=== PATIENT | female | born 1995 | race Caucasian/White ===

== ENCOUNTER 2019-02-01 14:41 | Emergency (ER) | payer OTHER ==
--- NOTE | 2019-02-01 14:46 | ED Physician Documentation ---
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 That cleared in a minute. Then went to her car and was starting to drive home and felt lightheaded again, almost feeling that she would pass out. She turned back to hospital and came to ER for eval. Feeling improved coming into ER exam room.) Preceding symptoms: Palpitations (felt that her heart was going fast after feeling lightheaded), Light headed. No: Headache, Chest pain, Abdominal pain Associated symptoms: No: Headache, Chest pain, Nausea / vomiting Contributing factors: Decreased PO intake (she says she had not had anything to eat nor drink during work, which was from 6 am until 2 pm here at the hospital. Was going to eat when she got home.). No: Recent med change, Noxious stimulae, Emotional upset, Exertion Injury occurred: No: Fell, Head injury, Neck injury Similar symptoms before: Has not had sx before Recently seen: Not recently seen Review of Systems Constitutional: denies: Fever, Chills Nose: denies: Rhinorrhea / runny nose, Congestion Throat: denies: Sore throat Cardiac: reports: Palpitations (felt heart was going fast after she was feeling lightheaded.). denies: Chest pain / pressure Respiratory: denies: Cough GI: denies: Abdominal Pain, Nausea, Vomiting, Diarrhea : reports: LMP (1 week ago). denies: Dysuria, Discharge, Vaginal bleeding, Missed period Musculoskeletal: denies: Neck pain, Back pain Neurologic: reports: Near syncope. denies: Focal weakness, Numbness, Syncope, Altered mental status, Headache Endocrine: reports: Weight gain (mild over the past 4-5 months). denies: Weight loss PD PAST MEDICAL HISTORY - Past Medical History Cardiovascular: None Respiratory: None Neuro: None Endocrine/Autoimmune: None - Present Medications Home Medications: Ambulatory Orders Medication Instructions Recorded Confirmed No Known Home Medications 02/01/19 02/01/19 - Allergies Allergies/Adverse Reactions: Allergies Allergy/AdvReac Type Severity Reaction Status Date / Time latex Allergy Hives Verified 02/01/19 16:32 Sulfa (Sulfonamide Allergy Nausea Verified 02/01/19 16:32 Antibiotics) PD ED PE NORMAL - Vitals Vital signs reviewed: Yes - General General: Alert and oriented X 3, Well developed/nourished - HEENT HEENT: Atraumatic, Pharynx benign - Neck Neck: Supple, no meningeal sign, No adenopathy, Thyroid normal - Cardiac Cardiac: RRR, No murmur - Respiratory Respiratory: Clear bilaterally - Abdomen Abdomen: Soft, Non tender - Rectal Rectal: Deferred - Derm Derm: Normal color, Warm and dry - Extremities Extremities: No tenderness to palpate, Normal ROM s pain, No edema, No calf tenderness / cord - Neuro Neuro: Alert and oriented X 3, No motor deficit, Normal speech Results - Vitals Vitals: Vital Signs - 24 hr 02/01/19 02/01/19 14:48 16:54 Temperature 36.6 C 37.0 C Heart Rate 90 90 Respiratory 16 21 Rate Blood Pressure 147/96 H 128/89 H O2 Saturation 100 97 Oxygen O2 Source Room air - EKG (time done) 14:59 Rate: Rate (enter#) (100) Rhythm: NSR [place]: Normal Intervals: Normal [place] QRS: Normal Ischemia: Normal ST segments. No: ST elevation c/w ischemia, ST depression - Labs Labs: Laboratory Tests 02/01/19 02/01/19 02/01/19 15:27 15:35 15:35 WBC 7.3 RBC 4.84 Hgb 13.8 Hct 42.9 MCV 88.6 MCH 28.5 MCHC 32.2 RDW 11.5 L Plt Count 261 MPV 9.7 Neut # (Auto) 4.1 Lymph # (Auto) 2.4 [place] # (Auto) 0.5 Eos # (Auto) 0.3 Baso # (Auto) 0.0 Absolute Nucleated RBC 0.00 Nucleated RBC % 0.0 Sodium 139 Potassium 3.5 Chloride 102 Carbon Dioxide 23 Anion Gap 14.0 H BUN 18 Creatinine 0.7 Estimated GFR (MDRD) 105 Glucose 104 H Calcium 9.5 Magnesium 2.2 Total Bilirubin 0.6 AST 38 ALT 62 H Alkaline Phosphatase 48 Total Protein 7.9 Albumin 4.7 Globulin 3.2 Albumin/Globulin Ratio 1.5 Lipase 28 TSH Urine Color YELLOW Urine Clarity CLEAR Urine pH 6.5 Ur Specific [place] 1.010 Urine Protein NEGATIVE Urine Glucose (UA) NEGATIVE Urine Ketones NEGATIVE Urine Occult Blood NEGATIVE Urine Nitrite NEGATIVE Urine Bilirubin NEGATIVE Urine Urobilinogen 0.2 (NORMAL) Ur Leukocyte Esterase NEGATIVE Ur Microscopic Review NOT INDICATED Urine Culture Comments NOT INDICATED Urine HCG, Qual NEGATIVE 02/01/19 15:35 WBC RBC Hgb Hct MCV MCH MCHC RDW Plt Count MPV Neut # (Auto) Lymph # (Auto) [place] # (Auto) Eos # (Auto) Baso # (Auto) Absolute Nucleated RBC Nucleated RBC % Sodium Potassium Chloride Carbon Dioxide Anion Gap BUN Creatinine Estimated GFR (MDRD) Glucose Calcium Magnesium Total Bilirubin AST ALT Alkaline Phosphatase Total Protein Albumin Globulin Albumin/Globulin Ratio Lipase TSH 1.35 Urine Color Urine Clarity Urine pH Ur Specific [place] Urine Protein Urine Glucose (UA) Urine Ketones Urine Occult Blood Urine Nitrite Urine Bilirubin Urine Urobilinogen Ur Leukocyte Esterase Ur Microscopic Review Urine Culture Comments Urine HCG, Qual PD MEDICAL DECISION MAKING - ED course Complexity details: reviewed results, considered differential, d/w patient Departure - Departure Disposition: 01 Home, Self Care Clinical Impression: Near syncope Condition: Stable Record reviewed to determine appropriate education?: Yes Instructions: ED Near Syncope Unkn Comments: Stay well-hydrated. Regular meals. Recheck if recurrent or persistent problems. At this point there are no signs of significant causes for the episodes and I presume it was just under hydrated led to a transient low blood pressure. Discharge Date/Time: 02/01/19 16:56
[2019-02-01 15:35] LABS: BILIRUBIN,URINE NEGATIVE (NEGATIVE); GLUCOSE, URINE (UA) NEGATIVE (NEGATIVE); KETONES,URINE (UA) NEGATIVE (NEGATIVE); LEUKOCYTE ESTERASE, URINE NEGATIVE (NEGATIVE); NITRITE,URINE NEGATIVE (NEGATIVE); OCCULT BLOOD,URINE NEGATIVE (NEGATIVE); PH,URINE 6.5 PH (5.0-7.5); PROTEIN,URINE NEGATIVE (NEGATIVE); UROBILINOGEN,URINE 0.2 (NORMAL) E.U./dL (NORMAL)
[2019-02-01 15:41] LABS: CLARITY,URINE CLEAR (CLEAR); HCG UR QUAL NEGATIVE
[2019-02-01 15:42] LABS: BASOPHILS % (AUTO) 0.4 %; EOSINOPHILS # (AUTO) 0.3 10^3/uL (0.0-0.7); EOSINOPHILS % (AUTO) 3.4 %; HGB - HEMOGLOBIN 13.8 g/dL (12.0-16.0); LYMPHOCYTES # (AUTO) 2.4 10^3/uL (1.5-3.5); LYMPHOCYTES % (AUTO) 32.4 %; MEAN CORPUSCULAR HEMOGLOBIN 28.5 pg (27.0-31.0); MEAN CORPUSCULAR HGB CONC 32.2 g/dL (32.0-36.0); MEAN CORPUSCULAR VOLUME 88.6 fL (81.0-99.0); MEAN PLATELET VOLUME 9.7 fL (7.9-10.8); MONOCYTES # (AUTO) 0.5 10^3/uL (0.0-1.0); MONOCYTES % (AUTO) 6.2 %; NEUTROPHILS # (AUTO) 4.1 10^3/uL (1.5-6.6); PLT - PLATELET COUNT 261 10^3/uL (130-450); RED BLOOD COUNT 4.84 10^6/uL (4.20-5.40); RED CELL DISTRIBUTION WIDTH 11.5 % (12.0-15.0); WHITE BLOOD COUNT 7.3 x10^3/uL (4.8-10.8)
[2019-02-01 16:05] LABS: ALBUMIN 4.7 g/dL (3.2-5.5); ALBUMIN/GLOBULIN RATIO 1.5 (1.0-2.2); BILIRUBIN,TOTAL 0.6 mg/dL (0.2-1.0); CALCIUM 9.5 mg/dL (8.5-10.3); CREATININE 0.7 mg/dL (0.4-1.0); MAGNESIUM 2.2 mg/dL (1.7-2.8); TOTAL PROTEIN 7.9 g/dL (6.7-8.2)
[2019-02-01 16:55] VITALS: BP 128/89
== END 2019-02-01 16:56 | disposition home or self-care (01) ==
LOC: ED 14:41
DX: R55 Syncope and collapse (principal); R00.0 Tachycardia, unspecified
CPT/HCPCS: 36415; 80053; 81001; 81003; 81025; 83690; 83735; 84443; 85025; 87086; 93005; 99283

== ENCOUNTER 2019-05-04 11:36 | Outpatient (CLI) | payer OTHER | END 2019-05-04 11:37 | disposition home or self-care (01) | LOC: DI 11:36 | PROVIDERS: ATTEND Physician Assistant | DX: R42 Dizziness and giddiness (principal) | CPT/HCPCS: 93306 ==

== ENCOUNTER 2020-01-19 08:00 | Outpatient (CLI) | payer OTHER | END 2020-01-19 23:59 | disposition home or self-care (01) | LOC: LAB.WCP 08:00 | PROVIDERS: ATTEND Nurse Practitioner Family | DX: L08.9 Local infection of the skin and subcutaneous tissue, unspecified (principal) | CPT/HCPCS: 81599; 87070; 87075; 87147; 87186; 87205 ==

== ENCOUNTER 2020-05-24 15:30 | Outpatient (CLI) | payer BC, OTHER | END 2020-05-24 23:59 | disposition home or self-care (01) | LOC: LAB.R 15:30 | PROVIDERS: ATTEND Family Medicine | DX: R50.9 Fever, unspecified (principal); Z20.828 Contact with and (suspected) exposure to other viral communicable diseases ==

== ENCOUNTER 2021-02-20 15:29 | Outpatient (CLI) | payer BC ==
[2021-02-20 18:03] LABS: BASOPHILS % (AUTO) 0.4 %; EOSINOPHILS # (AUTO) 0.2 10^3/uL (0.0-0.7); EOSINOPHILS % (AUTO) 2.4 %; HCT - HEMATOCRIT 39.5 % (37.0-47.0); HGB - HEMOGLOBIN 13.3 g/dL (12.0-16.0); LYMPHOCYTES # (AUTO) 2.5 10^3/uL (1.5-3.5); LYMPHOCYTES % (AUTO) 33.3 %; MEAN CORPUSCULAR HEMOGLOBIN 29.9 pg (27.0-31.0); MEAN CORPUSCULAR HGB CONC 33.7 g/dL (32.0-36.0); MEAN CORPUSCULAR VOLUME 88.8 fL (81.0-99.0); MONOCYTES # (AUTO) 0.6 10^3/uL (0.0-1.0); MONOCYTES % (AUTO) 8.1 %; NEUTROPHILS # (AUTO) 4.1 10^3/uL (1.5-6.6); NEUTROPHILS % (AUTO) 54.9 %; PLT - PLATELET COUNT 266 10^3/uL (130-450); RED BLOOD COUNT 4.45 10^6/uL (4.20-5.40); RED CELL DISTRIBUTION WIDTH 11.9 % (12.0-15.0); WHITE BLOOD COUNT 7.4 x10^3/uL (4.8-10.8)
[2021-02-20 18:05] LABS: ALBUMIN 4.4 g/dL (3.2-5.5); ALBUMIN/GLOBULIN RATIO 1.4 (1.0-2.2); BILIRUBIN,TOTAL 0.8 mg/dL (0.2-1.0); CREATININE 0.7 mg/dL (0.4-1.0); POTASSIUM 3.9 mmol/L (3.5-5.0); TOTAL PROTEIN 7.6 g/dL (6.7-8.2)
[2021-02-20 18:25] LABS: THYROID STIMULATING HORMONE 3.01 uIU/mL (0.34-5.60)
[2021-02-20 18:32] LABS: FERRITIN 117.9 ng/mL (11.0-306.8)
== END 2021-02-20 15:30 | disposition home or self-care (01) ==
LOC: LAB.WCP 15:29
PROVIDERS: ATTEND Physician Assistant Medical
DX: R53.83 Other fatigue (principal)
CPT/HCPCS: 36415; 80053; 82306; 82607; 82728; 84443; 85025

== ENCOUNTER 2022-10-17 20:20 | Outpatient (CLI) | payer BC | END 2022-10-17 20:21 | disposition left against medical advice (07) | LOC: EMS 20:20 | DX: R07.9 Chest pain, unspecified (principal) ==

== ENCOUNTER 2023-06-21 09:45 | Outpatient (CLI) | payer BC ==
--- NOTE | 2023-06-21 19:50 | Ultrasound Report ---
PROCEDURE: Pelvic w/Transvaginal INDICATIONS: IRREGULAR MENSTRATION TECHNIQUE: Real-time scanning was performed of the pelvic organs, with image documentation. Additional endovagi nal scanning was necessary due to incomplete visualization of the adnexal and endometrial structures by transabdominal scanning. COMPARISON: None. FINDINGS: Uterus: Uterus is anteverted and normal in size at 7.7 x 3.2 x 4.3 cm. The myometrium is homogeneou s. The endometrium measures 10 mm in combined thickness. No abnormal vascularity can be seen along the endometrial stripe. A nabothian cyst can be seen, measuring 7 mm. A small amount of fluid can be seen along the endocervical canal. No focal cervical lesion is seen. Ovaries: The right ovary measures 2.7 x 2.1 x 2 x 1 cm, with a calculated ovarian volume of 6.2 cc. The right ovary is not seen transvaginally. The left ovary measures 2.9 x 1.8 x 1.8 cm, with a calculated ovarian volume of 4.9 cc. A corpus lut eum versus cyst is seen that measures up to 11 mm, which is considered to be within physiologic limit s. The ovaries have a normal sonographic appearance. Less than 12 follicles can be seen in each ovary. No adnexal masses are seen. No cystic lesions measuring greater than 3 cm. Other: No pathologic free abdominal or pelvic fluid. IMPRESSION: No significant pelvic ultrasound abnormality is seen to explain the patient's presenting symptoms. A small amount of fluid is noted along the endometrial stripe. Reviewed by: Fernando Mason MD on 06/21/2023 6:49 PM [facility] Approved by: Fernando Mason MD on 06/21/2023 6:49 PM [facility] Station ID: [id number]
== END 2023-06-21 09:46 | disposition home or self-care (01) ==
LOC: DI 09:45
PROVIDERS: ATTEND Naturopath
DX: N92.6 Irregular menstruation, unspecified (principal)